=== PATIENT | male | born 2000 | race Caucasian/White ===

== ENCOUNTER 2018-04-14 09:27 | Emergency (ER) | payer BC, OTHER ==
[2018-04-14 10:10] VITALS: BP 129/68
[2018-04-14] MEDS ORDERED: Ibuprofen TAB* 600 MG PO ONE (10:19)
[2018-04-14] MEDS ORDERED: Acetaminophen TAB* 325 MG PO ONE (10:19)
--- NOTE | 2018-04-14 10:21 | UC ---
Hand/Wrist HPI - HPI Summary HPI Summary: Yesterday afternoon patient punched an air conditioning unit with his right hand. Complaint of pain and swelling in his right hand complaints of pain fourth and fifth metacarpal and the base of the third proximal phalange. Patient reports up to date on his immunizations up-to-date on his tetanus does have multiple abrasions on his hands with significant amount of soft tissue swelling - History Of Current Complaint Chief Complaint: UCUpperExtremity Stated Complaint: RT HAND INJURY Time Seen by Provider: 04/14/18 10:15 Hx Obtained From: Patient Mechanism Of Injury: Punched an air-conditioning unit Onset/Duration: Sudden Onset, Lasting Days - 1 Pain Intensity: 8 Pain Scale Used: 0-10 Numeric Character Of Pain: Aching, Throbbing Aggravating Factor(s): Movement Alleviating Factor(s): Ice Associated Signs And Symptoms: Positive: Negative, Swelling, Redness Related History: Dominant Hand Right - Allergies/Home Medications Allergies/Adverse Reactions: Allergies Allergy/AdvReac Type Severity Reaction Status Date / Time No Known Allergies Allergy Verified 04/14/18 10:07 PMH/Surg Hx/FS Hx/Imm Hx Previously Healthy: Yes - Surgical History Surgical History: None - Family History Known Family History: Positive: None Family History: no medical issues in family lineage - Social History Occupation: Works From/At Home Lives: With Family Alcohol Use: None Substance Use Type: None Smoking Status (MU): Light Every Day Tobacco Smoker Type: Cigarettes Amount Used/How Often: 5 cigs daily - Immunization History Most Recent Influenza Vaccination: Not the 2013/2014 Season Vaccination Up to Date: Yes Review of Systems Constitutional: Negative Skin: Other - swelling and abrasions right hand Eyes: Negative ENT: Negative Respiratory: Negative Cardiovascular: Negative Gastrointestinal: Negative Genitourinary: Negative Motor: Negative Neurovascular: Negative Musculoskeletal: Arthralgia - right proximal 3rd phalange, 4/5 metacarpal Neurological: Negative Psychological: Negative Is Patient Immunocompromised?: No All Other Systems Reviewed And Are Negative: Yes Physical Exam Triage Information Reviewed: Yes Appearance: Well-Appearing, No Pain Distress, Well-Nourished Vital Signs: Initial Vital Signs Temp 99.1 F 04/14/18 10:05 Pulse 82 04/14/18 10:05 Resp 16 04/14/18 10:05 BP 129/68 04/14/18 10:05 Pulse Ox 97 04/14/18 10:05 Vital Signs Reviewed: Yes Eye Exam: Normal Eyes: Positive: Conjunctiva Clear ENT Exam: Normal ENT: Positive: Normal ENT inspection, Hearing grossly normal. Negative: Muffled voice, Hoarse voice, Dental tenderness Dental Exam: Normal Neck exam: Normal Neck: Positive: Supple, Nontender, No Lymphadenopathy Respiratory Exam: Normal Respiratory: Positive: Chest non-tender, No respiratory distress, No accessory muscle use Cardiovascular Exam: Normal Cardiovascular: Positive: RRR, Pulses Normal, Brisk Capillary Refill Musculoskeletal Exam: Normal Musculoskeletal: Positive: Strength Intact, ROM Intact, No Edema Neurological Exam: Normal Neurological: Positive: Alert, Muscle Tone Normal Psychological Exam: Normal Skin Exam: Normal Skin: Positive: Other - multiple abrasions right hand Diagnostics - Radiology No standard instances Xray Interpretation: Positive (See Comments) - Patient Name: ROHINI JUAN Medical Record#: [id number] Ordering Physician: Aracelis Sena [employer] Acct.#: [id number] : 2000 Age: 17 Sex: M Location: [facility] Exam Date: 04/14/18 1020 ADM Status: REG ER Order Information: HAND - RIGHT MINIMUM 3 VIEWS Accession Number: [id number] CPT: 93535 INDICATION: Left hand pain/swelling COMPARISON : None TECHNIQUE: AP, lateral, and oblique views were obtained. FINDINGS: There is diffuse soft tissue swelling over the dorsum of the hand presumably related to acute traumatic injury. There are mild cortical irregularities about the base of the proximal fossa the third digit which may represent a fracture although it is not clear that this represents an acute injury. The articular relationships are maintained There is no evidence of foreign body. IMPRESSION: DIFFUSE SOFT TISSUE SWELLING DORSUM HAND WITH AGE-INDETERMINATE FRACTURE BASE OF PROXIMAL PHALANX OF THE THIRD DIGIT <Electronically signed by Leo Cortez MD in OV> 01/27 1045 Dictated By: Leo Cortez MD Dictated Date/Time: 04/14/18 1045 Transcribed Date/Time: 04/14/18 1042 Copy to: CC:Aracelis Sena [employer]; Stella Tucker MD; Dawit Rich MD Imaging - [facility] - [facility] - [facility] [id number] [place] [id number] ph [phone] ph ([phone] ph ([phone]) 1 of 1 Radiology Interpretation Completed By: ED Physician, Radiologist Hand/Wrist Course/Dx - Course Course Of Treatment: Splint third right finger, soap and water wash for the abrasion,s triple antibiotic when necessary for the abrasions, ice for the swelling, ibuprofen Tylenol for the pain, follow up with orthopedic M.D. in the next 3-4 days - Differential Dx/Diagnosis Provider Diagnoses: Fractured base of proximal third finger. contusion and abrasion right hand Discharge - Sign-Out/Discharge Documenting (check all that apply): Discharge/Admit/Transfer - Discharge Plan Condition: Stable Disposition: HOME Prescriptions: Ibuprofen TAB* [Motrin TAB* 600 MG] 600 mg PO Q6H PRN #30 tab PRN Reason: pain Patient Education Materials: Finger Fracture (ED), Contusion in Adults (ED), Abrasion (ED), R.I.C.E. Treatment (ED) Referrals: Say Lilly MD [Medical Doctor] - 4 Days - Billing Disposition and Condition Condition: STABLE Disposition: Home
--- NOTE | 2018-04-14 10:48 | RAD ---
INDICATION: Left hand pain/swelling COMPARISON: None TECHNIQUE: AP, lateral, and oblique views were obtained. FINDINGS: There is diffuse soft tissue swelling over the dorsum of the hand presumably related to acute traumatic injury. There are mild cortical irregularities about the base of the proximal fossa the third digit which may represent a fracture although it is not clear that this represents an acute injury. The articular relationships are maintained There is no evidence of foreign body. IMPRESSION: DIFFUSE SOFT TISSUE SWELLING DORSUM HAND WITH AGE-INDETERMINATE FRACTURE BASE OF PROXIMAL PHALANX OF THE THIRD DIGIT
== END 2018-04-14 11:24 | disposition home or self-care (01) ==
LOC: UCCORT 09:27
DX: S62.612A Displaced fracture of proximal phalanx of right middle finger, initial encounter for closed fracture (principal); S60.511A Abrasion of right hand, initial encounter; Y29.XXXA Contact with blunt object, undetermined intent, initial encounter; Y93.89 Activity, other specified; Y92.9 Unspecified place or not applicable; F17.210 Nicotine dependence, cigarettes, uncomplicated
CPT/HCPCS: 99203; A9270-GY; G0463